=== PATIENT | male | born 1965 | race Caucasian/White ===

== ENCOUNTER 2021-05-30 15:25 | Inpatient (IN) | payer OTHER ==
[~2021-05-30] VITALS: Ht 167.6 cm; Wt 85.6 kg
[2021-05-30 16:04] LABS: HEMOGLOBIN 14.4 gm/dl (14.0-17.5); RED BLOOD COUNT 4.56 M/UL (4.20-5.50); WHITE BLOOD COUNT 8.1 K/UL (4.5-11.0)
[2021-05-30 16:27] LABS: BUN/CREATININE RATIO 14 (0-10)
[2021-05-31 04:48] LABS: RED BLOOD COUNT 3.84 M/UL (4.20-5.50)
[2021-05-31 05:17] LABS: BUN/CREATININE RATIO 12 (0-10)
[2021-05-31] MEDS ORDERED: CREON DR 24,001 EACH PO (09:25)
[2021-05-31] MEDS ORDERED: ATORVASTATIN CA40 MG PO (09:32)
[2021-05-31] MEDS ORDERED: FENOFIBRATE160 MG PO (09:32)
[2021-05-31] MEDS ORDERED: OXYCODONE HCL10 MG PO (09:32)
[2021-05-31] MEDS ORDERED: VENLAFAXINE HCL75 MG PO (09:57)
[2021-05-31] MEDS ORDERED: PROTONIX 40 MG40 M1 PO (09:58)
[2021-05-31] MEDS ORDERED: LISINOPRIL40 MG PO (09:58)
[2021-05-31] MEDS ORDERED: MULTI-VITAMIN1 EACH PO (10:01)
[2021-05-31] MEDS ORDERED: B-121000 MCG PO (10:01)
[2021-05-31] MEDS ORDERED: METOPROLOL TART50 MG PO (10:01)
[2021-05-31] MEDS ORDERED: HUMULIN N100 UNIT/1 SC (10:02)
[2021-06-01 02:59] LABS: HEMOGLOBIN 10.9 gm/dl (14.0-17.5); RED BLOOD COUNT 3.51 M/UL (4.20-5.50); WHITE BLOOD COUNT 5.4 K/UL (4.5-11.0)
[2021-06-01 03:21] LABS: BUN/CREATININE RATIO 17 (0-10)
[2021-06-02 03:46] LABS: HEMOGLOBIN 10.4 gm/dl (14.0-17.5); RED BLOOD COUNT 3.27 M/UL (4.20-5.50)
[2021-06-02 04:03] LABS: WHITE BLOOD COUNT 3.9 K/UL (4.5-11.0)
[2021-06-02 04:19] LABS: BUN/CREATININE RATIO 16 (0-10)
[2021-06-03 09:54] LABS: HEMOGLOBIN 10.9 gm/dl (14.0-17.5); RED BLOOD COUNT 3.44 M/UL (4.20-5.50); WHITE BLOOD COUNT 3.1 K/UL (4.5-11.0)
[2021-06-03 10:29] LABS: BUN/CREATININE RATIO 11 (0-10)
[2021-06-04] MEDS ORDERED: AUGMENTIN 875-1 EACH PO (09:03)
[2021-06-04] MEDS ORDERED: HYDROCODON-ACE1 EAC2 PO (09:19)
== END 2021-06-04 10:00 | disposition home or self-care (01) | DRG 853 ==
LOC: ER1 15:25 → PROG CARE 18:31 → M/S 18:31 → CDU 18:31 → PROG CARE 05-31 10:03 → M/S 06-01 17:41
PROVIDERS: Internal Medicine; Internal Medicine Gastroenterology; Student in an Organized Health Care Education/Training Program; Surgery; ADMIT Internal Medicine
PROC: 0FT44ZZ Resection of Gallbladder, Percutaneous Endoscopic Approach (ICD-10-PCS; principal; 2021-05-30)
PROC: BF141ZZ Fluoroscopy of Gallbladder, Bile Ducts and Pancreatic Ducts using Low Osmolar Contrast (ICD-10-PCS; 2021-05-30)
DX: A41.9 Sepsis, unspecified organism (principal); K85.80 Other acute pancreatitis without necrosis or infection; E87.1 Hypo-osmolality and hyponatremia; K80.00 Calculus of gallbladder with acute cholecystitis without obstruction; E87.2 Acidosis; Z20.822 Contact with and (suspected) exposure to COVID-19; I10 Essential (primary) hypertension; F10.10 Alcohol abuse, uncomplicated; E80.6 Other disorders of bilirubin metabolism; E11.9 Type 2 diabetes mellitus without complications; K59.00 Constipation, unspecified; E78.1 Pure hyperglyceridemia; E78.5 Hyperlipidemia, unspecified; Z83.3 Family history of diabetes mellitus; Z82.49 Family history of ischemic heart disease and other diseases of the circulatory system; Z84.89 Family history of other specified conditions; Z79.4 Long term (current) use of insulin
CPT/HCPCS: 36415; 71045; 76705; 80053; 80061; 80076; 81001; 82248; 82550; 82553; 82962; 83605; 83690; 83735; 83874; 84100; 84484; 85025; 85027; 87040; 87086; 96374; 96375; 99285; J0690; J0696; J1100; J1170; J1650; J1885; J2185; J2250; J2270; J2405; J2704; J2710; J3010; J7030; J7120; Q9967; U0002

== ENCOUNTER 2022-02-04 22:11 | Inpatient (IN) | payer OTHER ==
[~2022-02-04] VITALS: Ht 167.6 cm; Wt 90.0 kg
[~2022-02-04 22:11] MED LIST: ATORVASTATIN CA40 MG PO; AUGMENTIN 875-1 EACH PO; B-121000 MCG PO; CREON DR 24,001 EACH PO; FENOFIBRATE160 MG PO; HUMULIN N100 UNIT/1 SQ; HYDROCODON-ACE1 EAC2 PO; LISINOPRIL40 MG PO; METOPROLOL TART50 MG PO; MULTI-VITAMIN1 EACH PO; OXYCODONE HCL10 MG PO; PROTONIX 40 MG40 M1 PO; VENLAFAXINE HCL75 MG PO
[2022-02-04 23:33] LABS: RED BLOOD COUNT 3.83 M/UL (4.20-5.50)
[2022-02-05 01:16] LABS: BUN/CREATININE RATIO 15 (0-10)
[2022-02-05 06:18] LABS: RED BLOOD COUNT 3.96 M/UL (4.20-5.50)
[2022-02-05 06:55] LABS: HEMOGLOBIN 12.5 gm/dl (14.0-17.5); WHITE BLOOD COUNT 7.6 K/UL (4.5-11.0)
[2022-02-05] MEDS ORDERED: FENOFIBRATE160 MG PO (10:12)
[2022-02-05] MEDS ORDERED: OMEGA-31000 MG PO (10:12)
[2022-02-05] MEDS ORDERED: ASPIRIN EC325 MG PO (10:12)
[2022-02-05] MEDS ORDERED: ATORVASTATIN CA40 MG PO (10:13)
[2022-02-05] MEDS ORDERED: OXYCODONE HCL10 MG PO (10:13)
[2022-02-05 10:30] LABS: BUN/CREATININE RATIO 6 (0-10)
[2022-02-05 12:23] LABS: HEMOGLOBIN 13.8 gm/dl (14.0-17.5)
[2022-02-05 12:25] LABS: WHITE BLOOD COUNT 8.9 K/UL (4.5-11.0)
[2022-02-05 12:32] LABS: BUN/CREATININE RATIO 5 (0-10)
[2022-02-05 16:02] LABS: BUN/CREATININE RATIO 7 (0-10)
[2022-02-05 20:36] LABS: BUN/CREATININE RATIO 16 (0-10)
[2022-02-06 00:05] LABS: BUN/CREATININE RATIO 14 (0-10)
[2022-02-06 05:20] LABS: RED BLOOD COUNT 3.71 M/UL (4.20-5.50); WHITE BLOOD COUNT 8.4 K/UL (4.5-11.0)
[2022-02-06 05:32] LABS: BUN/CREATININE RATIO 8 (0-10)
[2022-02-06 11:38] LABS: BUN/CREATININE RATIO 10 (0-10)
[2022-02-06 17:17] LABS: BUN/CREATININE RATIO 11 (0-10)
[2022-02-07 01:54] LABS: BUN/CREATININE RATIO 4 (0-10)
[2022-02-07 07:54] LABS: BUN/CREATININE RATIO 5 (0-10)
[2022-02-07 16:04] LABS: BUN/CREATININE RATIO 6 (0-10)
[2022-02-07 21:11] LABS: BUN/CREATININE RATIO 5 (0-10)
--- NOTE | 2022-02-07 23:18 | NUR ---
2245 ENTERED PATIENTS ROOM TO DO AN ACCU CHECK, PT HAD PULLED OUT BOTH IV'S DOCUMENTED, STATED HE WAS DONE AND DIDNT NEED THEM ANY MORE. TREATMENT WAS EXPLAINED TO THE PATIENT AND THE NEED FOR IV SITES, HE AGREED TO RECEIVING NEW IV'S AND AGREED NOT TO PULL THEM OUT. HE ALSO PULLED OFF ALL TELEMETRY MONITORING HAS SINCE AGEED TO WEAR. HE SAID HE IS GOING HOME IN THE MORNING.
[2022-02-08 05:16] LABS: HEMOGLOBIN 12.5 gm/dl (14.0-17.5); RED BLOOD COUNT 3.4 M/UL (4.20-5.50)
[2022-02-08 05:19] LABS: WHITE BLOOD COUNT 5.8 K/UL (4.5-11.0)
[2022-02-08 06:13] LABS: BUN/CREATININE RATIO 5 (0-10)
[2022-02-08 21:47] LABS: BUN/CREATININE RATIO 8 (0-10)
[2022-02-09 05:20] LABS: HEMOGLOBIN 10.9 gm/dl (14.0-17.5); RED BLOOD COUNT 3.2 M/UL (4.20-5.50); WHITE BLOOD COUNT 5.6 K/UL (4.5-11.0)
[2022-02-09 07:32] LABS: BUN/CREATININE RATIO 10 (0-10)
[2022-02-10 06:27] LABS: BUN/CREATININE RATIO 11 (0-10)
[2022-02-10 06:37] LABS: HEMOGLOBIN 10.5 gm/dl (14.0-17.5); RED BLOOD COUNT 3.27 M/UL (4.20-5.50); WHITE BLOOD COUNT 5.8 K/UL (4.5-11.0)
[2022-02-11 06:07] LABS: HEMOGLOBIN 9.3 gm/dl (14.0-17.5); RED BLOOD COUNT 2.98 M/UL (4.20-5.50)
[2022-02-11 06:09] LABS: WHITE BLOOD COUNT 4.3 K/UL (4.5-11.0)
[2022-02-11 07:32] LABS: BUN/CREATININE RATIO 11 (0-10)
[2022-02-12 05:02] LABS: HEMOGLOBIN 10.1 gm/dl (14.0-17.5)
[2022-02-12 05:05] LABS: RED BLOOD COUNT 3.28 M/UL (4.20-5.50); WHITE BLOOD COUNT 6.6 K/UL (4.5-11.0)
[2022-02-12 05:52] LABS: BUN/CREATININE RATIO 11 (0-10)
[2022-02-12 13:47] LABS: BUN/CREATININE RATIO 11 (0-10)
[2022-02-13 05:05] LABS: HEMOGLOBIN 9.3 gm/dl (14.0-17.5); RED BLOOD COUNT 3.04 M/UL (4.20-5.50); WHITE BLOOD COUNT 8.3 K/UL (4.5-11.0)
[2022-02-13 05:27] LABS: BUN/CREATININE RATIO 8 (0-10)
[2022-02-14 05:08] LABS: HEMOGLOBIN 9.6 gm/dl (14.0-17.5); RED BLOOD COUNT 3.14 M/UL (4.20-5.50); WHITE BLOOD COUNT 9.6 K/UL (4.5-11.0)
[2022-02-14 05:47] LABS: BUN/CREATININE RATIO 11 (0-10)
[2022-02-14 17:21] LABS: HEMOGLOBIN 9.4 gm/dl (14.0-17.5)
[2022-02-15 05:17] LABS: RED BLOOD COUNT 2.98 M/UL (4.20-5.50); WHITE BLOOD COUNT 7.2 K/UL (4.5-11.0)
[2022-02-15 07:06] LABS: BUN/CREATININE RATIO 9 (0-10)
[2022-02-16 05:28] LABS: HEMOGLOBIN 8.8 gm/dl (14.0-17.5); RED BLOOD COUNT 2.77 M/UL (4.20-5.50); WHITE BLOOD COUNT 5.6 K/UL (4.5-11.0)
[2022-02-16 05:40] LABS: BUN/CREATININE RATIO 12 (0-10)
[2022-02-17 05:12] LABS: HEMOGLOBIN 9.4 gm/dl (14.0-17.5); RED BLOOD COUNT 2.93 M/UL (4.20-5.50)
[2022-02-17 05:36] LABS: BUN/CREATININE RATIO 18 (0-10)
[2022-02-18 05:58] LABS: RED BLOOD COUNT 2.93 M/UL (4.20-5.50); WHITE BLOOD COUNT 7.2 K/UL (4.5-11.0)
[2022-02-18 06:18] LABS: HEMOGLOBIN 9.4 gm/dl (14.0-17.5)
[2022-02-18 06:42] LABS: BUN/CREATININE RATIO 25 (0-10)
[2022-02-19 05:52] LABS: HEMOGLOBIN 8.8 gm/dl (14.0-17.5); RED BLOOD COUNT 2.84 M/UL (4.20-5.50); WHITE BLOOD COUNT 6.2 K/UL (4.5-11.0)
[2022-02-19 06:33] LABS: BUN/CREATININE RATIO 33 (0-10)
[2022-02-20 05:47] LABS: HEMOGLOBIN 8.8 gm/dl (14.0-17.5); RED BLOOD COUNT 2.94 M/UL (4.20-5.50); WHITE BLOOD COUNT 7.3 K/UL (4.5-11.0)
[2022-02-20 06:22] LABS: BUN/CREATININE RATIO 31 (0-10)
[2022-02-21 03:39] LABS: HEMOGLOBIN 8.8 gm/dl (14.0-17.5); WHITE BLOOD COUNT 7.1 K/UL (4.5-11.0)
[2022-02-21 04:18] LABS: BUN/CREATININE RATIO 26 (0-10)
[2022-02-22 05:25] LABS: HEMOGLOBIN 10.5 gm/dl (14.0-17.5)
[2022-02-22 05:27] LABS: RED BLOOD COUNT 3.58 M/UL (4.20-5.50); WHITE BLOOD COUNT 9.6 K/UL (4.5-11.0)
[2022-02-22 05:51] LABS: BUN/CREATININE RATIO 31 (0-10)
[2022-02-23 06:47] LABS: BUN/CREATININE RATIO 39 (0-10)
[2022-02-23 09:07] LABS: HEMOGLOBIN 9.8 gm/dl (14.0-17.5); RED BLOOD COUNT 3.32 M/UL (4.20-5.50); WHITE BLOOD COUNT 7.7 K/UL (4.5-11.0)
[2022-02-24 03:16] LABS: HEMOGLOBIN 10.5 gm/dl (14.0-17.5); RED BLOOD COUNT 3.54 M/UL (4.20-5.50); WHITE BLOOD COUNT 8.1 K/UL (4.5-11.0)
[2022-02-24 03:33] LABS: BUN/CREATININE RATIO 36 (0-10)
[2022-02-25 11:21] LABS: HEMOGLOBIN 11.1 gm/dl (14.0-17.5); RED BLOOD COUNT 3.81 M/UL (4.20-5.50)
[2022-02-25 11:29] LABS: WHITE BLOOD COUNT 10.5 K/UL (4.5-11.0)
[2022-02-25 11:54] LABS: BUN/CREATININE RATIO 29 (0-10)
[2022-02-26 03:20] LABS: HEMOGLOBIN 10.8 gm/dl (14.0-17.5); RED BLOOD COUNT 3.66 M/UL (4.20-5.50); WHITE BLOOD COUNT 9.8 K/UL (4.5-11.0)
[2022-02-26 03:51] LABS: BUN/CREATININE RATIO 21 (0-10)
[2022-02-27 09:09] LABS: HEMOGLOBIN 10.9 gm/dl (14.0-17.5); RED BLOOD COUNT 3.65 M/UL (4.20-5.50)
[2022-02-27 09:10] LABS: WHITE BLOOD COUNT 6.3 K/UL (4.5-11.0)
[2022-02-27 09:41] LABS: BUN/CREATININE RATIO 25 (0-10)
--- NOTE | 2022-02-27 13:40 | NUR ---
Pt had left the building wearing only boxers and a t shirt. he was seen leaving the hospital grounds. security was called , a lion alert called and the warehouse specialist is aware. I was directed to call 911 and he was brought back after walking to [facility] with a friend.
[2022-02-28 06:38] LABS: HEMOGLOBIN 10.6 gm/dl (14.0-17.5); RED BLOOD COUNT 3.62 M/UL (4.20-5.50); WHITE BLOOD COUNT 5.5 K/UL (4.5-11.0)
[2022-02-28 07:23] LABS: BUN/CREATININE RATIO 22 (0-10)
[2022-02-28] MEDS ORDERED: ASPIRIN EC325 MG PO (11:42)
[2022-02-28] MEDS ORDERED: ATORVASTATIN CA20 MG PO (11:42)
[2022-02-28] MEDS ORDERED: HUMULIN N100 UNIT/1 SQ (14:06)
--- NOTE | 2022-02-28 18:33 | NUR ---
received call from patient mother of unable to get the insulin because insurance needs approval/ authorization. reported this to dr. dominguez and he called the pharmacy and talked to pharmacist and able to change insulin of the patient from humulin n to lantus. dr. dominguez stated he will not call in patient oxycodone and that this pain medicine will be called in by patient's primary doctor. patient will be called for appointment by his primary doctor set up by hospital. instructed mother of the above and she agreed to pick out hand lantus at pharmacy this evening. instructed to begin lantus 40 units sq daily to begin tomorrow. informed of oxycdone will be filled by PCP. mother agreeable and verb understanding.
[2022-03-01] MEDS ORDERED: ZOFRAN ODT 4 MG4 MG SL (12:54)
[2022-03-01] MEDS ORDERED: OXYCODONE HCL10 MG PO (12:54)
== END 2022-02-28 14:08 | disposition home or self-care (01) | DRG 438 ==
LOC: ER1 22:11 → CCU 02-05 03:55 → M/S 02-05 03:55 → CDU 02-05 03:55 → PROG CARE 02-05 03:55 → M/S 02-05 06:15 → CCU 02-05 08:33 → PROG CARE 02-23 15:04 → M/S 02-25 00:07
PROVIDERS: Internal Medicine; Internal Medicine Nephrology; Internal Medicine Pulmonary Disease; Physician Assistant; ADMIT Internal Medicine
PROC: HZ2ZZZZ Detoxification Services for Substance Abuse Treatment (ICD-10-PCS; 2022-02-05)
PROC: 0BH18EZ Insertion of Endotracheal Airway into Trachea, Via Natural or Artificial Opening Endoscopic (ICD-10-PCS; 2022-02-12)
PROC: 5A1955Z Respiratory Ventilation, Greater than 96 Consecutive Hours (ICD-10-PCS; 2022-02-12)
PROC: 3E03329 Introduction of Other Anti-infective into Peripheral Vein, Percutaneous Approach (ICD-10-PCS; principal; 2022-02-14)
PROC: 0DH67UZ Insertion of Feeding Device into Stomach, Via Natural or Artificial Opening (ICD-10-PCS; 2022-02-14)
PROC: 3E0G76Z Introduction of Nutritional Substance into Upper GI, Via Natural or Artificial Opening (ICD-10-PCS; 2022-02-14)
PROC: 05HM33Z Insertion of Infusion Device into Right Internal Jugular Vein, Percutaneous Approach (ICD-10-PCS; 2022-02-14)
PROC: B543ZZA Ultrasonography of Right Jugular Veins, Guidance (ICD-10-PCS; 2022-02-14)
PROC: 3E043XZ Introduction of Vasopressor into Central Vein, Percutaneous Approach (ICD-10-PCS; 2022-02-14)
PROC: B24BZZZ Ultrasonography of Heart with Aorta (ICD-10-PCS; 2022-02-16)
DX: K85.20 Alcohol induced acute pancreatitis without necrosis or infection (principal); J96.01 Acute respiratory failure with hypoxia; J69.0 Pneumonitis due to inhalation of food and vomit; A41.9 Sepsis, unspecified organism; R65.20 Severe sepsis without septic shock; R57.8 Other shock; E87.1 Hypo-osmolality and hyponatremia; N17.9 Acute kidney failure, unspecified; E87.2 Acidosis; F10.231 Alcohol dependence with withdrawal delirium; K76.6 Portal hypertension; J98.11 Atelectasis; E51.2 Wernicke's encephalopathy; K86.3 Pseudocyst of pancreas; I12.9 Hypertensive chronic kidney disease with stage 1 through stage 4 chronic kidney disease, or unspecified chronic kidney disease; E78.1 Pure hyperglyceridemia; R16.1 Splenomegaly, not elsewhere classified; I25.10 Atherosclerotic heart disease of native coronary artery without angina pectoris; E87.6 Hypokalemia; N18.9 Chronic kidney disease, unspecified; E78.00 Pure hypercholesterolemia, unspecified; K29.80 Duodenitis without bleeding; E78.5 Hyperlipidemia, unspecified; E80.6 Other disorders of bilirubin metabolism; R94.5 Abnormal results of liver function studies; R91.8 Other nonspecific abnormal finding of lung field; E11.65 Type 2 diabetes mellitus with hyperglycemia; E83.39 Other disorders of phosphorus metabolism; E11.22 Type 2 diabetes mellitus with diabetic chronic kidney disease; Z96.659 Presence of unspecified artificial knee joint; K70.30 Alcoholic cirrhosis of liver without ascites; Z90.49 Acquired absence of other specified parts of digestive tract; Z98.890 Other specified postprocedural states; Z82.49 Family history of ischemic heart disease and other diseases of the circulatory system; Z79.899 Other long term (current) drug therapy; Z91.14 Patient's other noncompliance with medication regimen
CPT/HCPCS: ECHO; 31500; 36415; 36600; 70450; 71045; 71250; 73060; 73070; 74018; 76705; 80048; 80053; 80061; 81001; 82009; 82140; 82150; 82248; 82330; 82436; 82533; 82550; 82553; 82570; 82800; 82803; 82962; 82977; 83036; 83605; 83615; 83690; 83735; 83880; 83935; 84100; 84132; 84133; 84156; 84300; 84443; 84478; 84484; 85014; 85018; 85025; 85027; 85384; 85610; 85730; 86140; 87040; 87070; 87081; 87086; 87205; 92526; 92610; 93005; 93306; 94002; 94003; 94760; 97116; 97116-GP-CQ; 97161; 97167; 97530; 97530-GP-CQ; 97535; 99285; A6212; C9113; G0480; J0330; J0610; J1170; J1205; J1644; J1650; J1885; J1940; J2060; J2185; J2250; J2270; J2405; J2550; J2704; J2765; J3411; J3475; J3480; J3486; J7030; J7050; J7070; P9047; Q9967

== ENCOUNTER 2022-03-01 09:29 | Emergency (ER) | payer OTHER ==
[~2022-03-01 09:29] MED LIST changes: +ASPIRIN EC325 MG PO; +ATORVASTATIN CA20 MG PO; +OMEGA-31000 MG PO
[2022-03-01 10:58] LABS: HEMOGLOBIN 10.8 gm/dl (14.0-17.5); RED BLOOD COUNT 3.67 M/UL (4.20-5.50)
[2022-03-01 10:59] LABS: WHITE BLOOD COUNT 8.8 K/UL (4.5-11.0)
[2022-03-01 11:21] LABS: BUN/CREATININE RATIO 22 (0-10)
[2022-03-01] MEDS ORDERED: OXYCODONE HCL10 MG PO (12:54)
[2022-03-01] MEDS ORDERED: ZOFRAN ODT 4 MG4 MG SL (12:54)
== END 2022-03-01 13:00 | disposition home or self-care (01) ==
LOC: ER1 09:29
PROVIDERS: Emergency Medicine
DX: K86.1 Other chronic pancreatitis (principal); I11.9 Hypertensive heart disease without heart failure; E11.9 Type 2 diabetes mellitus without complications; D64.9 Anemia, unspecified
CPT/HCPCS: 80053; 83690; 85025; 99284; G0480

== ENCOUNTER 2022-03-06 16:55 | Inpatient (IN) | payer OTHER ==
[~2022-03-06] VITALS: Ht 167.6 cm; Wt 81.6 kg
[~2022-03-06 16:55] MED LIST changes: +ZOFRAN ODT 4 MG4 MG SL
[2022-03-06 17:34] LABS: HEMOGLOBIN 11.8 gm/dl (14.0-17.5); RED BLOOD COUNT 3.92 M/UL (4.20-5.50); WHITE BLOOD COUNT 9.3 K/UL (4.5-11.0)
[2022-03-06 18:18] LABS: BUN/CREATININE RATIO 20 (0-10)
[2022-03-07 05:38] LABS: HEMOGLOBIN 10.5 gm/dl (14.0-17.5); RED BLOOD COUNT 3.56 M/UL (4.20-5.50); WHITE BLOOD COUNT 9.1 K/UL (4.5-11.0)
[2022-03-07 06:11] LABS: BUN/CREATININE RATIO 16 (0-10)
[2022-03-07] MEDS ORDERED: ASPIRIN EC325 MG PO (11:06)
[2022-03-07] MEDS ORDERED: ATORVASTATIN CA80 MG PO (11:06)
[2022-03-07] MEDS ORDERED: LANTUS100 UNIT/1 SQ (11:07)
[2022-03-08 04:18] LABS: RED BLOOD COUNT 3.02 M/UL (4.20-5.50); WHITE BLOOD COUNT 4.3 K/UL (4.5-11.0)
[2022-03-08 04:54] LABS: BUN/CREATININE RATIO 17 (0-10)
[2022-03-08 07:11] LABS: CHOLESTEROL, TOTAL 170 mg/dL (100-199); HDL CHOLESTEROL 27 mg/dL (>39); LDL CHOLESTEROL CALC 89 mg/dL (0-99); LDL/HDL RATIO 3.3 ratio (0.0-3.6); T. CHOL/HDL RATIO 6.3 ratio (0.0-5.0); TRIGLYCERIDES 326 mg/dL (0-149)
[2022-03-08 08:14] LABS: LDH 430 IU/L (121-224)
--- NOTE | 2022-03-08 15:06 | NUR ---
PATIENT BEING TRANFERED TO [facility] ER. THAT FACILITY ASKED THAT PATIENT BE FITTED WITH SOFT CERVICAL COLLAR FOR TRANSPORT. THAT COLLAR IS IN PLACE. FAMILY HAD BEEN NOTIFIED OF RECIEVING FACILITY AND RECIEVING PROVIDERS. TRANSPORTATION BY AMBULANCE ARRANGED. FAMILY COMING TO SEE PATIENT AND HAS PERMISSION FROM HOUSE TO VISIT PATIENT BEFORE PATIENT LEAVES FOR CHARDON. CHUNG.
--- NOTE | 2022-03-08 15:30 | NUR ---
PATIENT UNHAPPY WITH PAIN CONTROL REGIMINE. DR PEDROZA CALLED AND 1 PERCOCET Q6 ORDERED. PATIENTS PREVIOUS MORPINE ORDER (2MG Q3) DC'D IN AM BY PROVIDER. PATIENT CONTACTED CONTRERAS MEDINA ABOUT HIS SITUATION. CONTRERAS INFORMED THE NURSE THAT PATIENT WOULD HAVE VISIT FROM DR PEDROZA OR A NEW PROVIDER IN ORDER TO TRY AND ADDRESS PATIENT CONCERNS. WILL CONTINUE TO MONITOR.
--- NOTE | 2022-03-08 17:58 | NUR ---
DR PEDROZA CAME BY TO SEE THE PATIENT DISCUSSED HIS PAIN CONTROL. DR WATCHED PATIENT THROUGH THE WINDOW. PATIENT SITTING QUIETLY WATCHING TV. DR ASSESSED PATIENTS PAIN LEVEL AND DISCUSSED HIS TRANSFER WITH HIM. PROVIDER SAID HE WOULD GIVE THE PATIENT MORE/BETTER PAIN CONTROL IF HE ACTUALLY THOUGHT THE PATIENT WAS IN THE AMOUNT OF PAIN HE REPORTED. WILL CONTINUE TO MONITOR.
--- NOTE | 2022-03-08 19:13 | NUR ---
APPROX 184 PT HAD BAGS PACKED AND CAUGHT RNS IN HALLWAY DURING SHIFT REPORT AND STATES HE IS LEAVING. PT WAS TOLD TO WAIT JUST COUPLE MINUTES AND I WOULD GET HIS PAPERWORK. AT THIS TIME PT STANDING AT NURSES STATION. WHEN CAME OUT OF LAST PT ROOM AND PT HAD UNHOOKED IV AND WAS GONE. SERCUITY WAS CALLED AND OTHER RN LEFT TO LOOK FOR PATIENT. 1900 PT WAS BROUGHT BACK TO FLOOR AND IV WAS TAKEN OUT, AMA PAPERS WERE SIGNED, PT HAD NO SIGNS OF DISTRESS. STATED HE FORGOT HE WAS SUPOSE TO WAIT AND SIGN PAPERS. PROCESS ENGINEER WAS NOTIFIED, 1909 DR. PEDROZA WAS NOTIFIED.
== END 2022-03-08 19:01 | disposition left against medical advice (07) | DRG 381 ==
LOC: ER1 16:55 → CDU 21:17 → MED SURG 4 03-07 15:54
PROVIDERS: Internal Medicine; Physician Assistant Medical; ADMIT Internal Medicine
DX: K31.1 Adult hypertrophic pyloric stenosis (principal); Z20.822 Contact with and (suspected) exposure to COVID-19; F11.20 Opioid dependence, uncomplicated; K86.0 Alcohol-induced chronic pancreatitis; F17.210 Nicotine dependence, cigarettes, uncomplicated; F10.10 Alcohol abuse, uncomplicated; I10 Essential (primary) hypertension; K21.9 Gastro-esophageal reflux disease without esophagitis; D64.9 Anemia, unspecified; E78.5 Hyperlipidemia, unspecified; G89.29 Other chronic pain; F32.A Depression, unspecified; F41.9 Anxiety disorder, unspecified; E11.40 Type 2 diabetes mellitus with diabetic neuropathy, unspecified; Z79.4 Long term (current) use of insulin; D73.5 Infarction of spleen; Z90.49 Acquired absence of other specified parts of digestive tract; Z98.890 Other specified postprocedural states; Z82.49 Family history of ischemic heart disease and other diseases of the circulatory system
CPT/HCPCS: 80053; 80061; 81001; 82550; 82553; 82962; 83615; 83690; 84439; 84443; 84484; 85025; 86140; 93005; 96361; 96374; 96375; 96376; 99285; C9113; G0480; J1170; J1650; J2270; J2405; Q9967; U0002

== ENCOUNTER → 2022-05-30 | Outpatient (CLI) | payer OTHER ==
[~2022-05-30] MED LIST changes: +ATORVASTATIN CA80 MG PO; +LANTUS100 UNIT/1 SQ
[2022-05-30 14:25] LABS: BUN/CREATININE RATIO 25 (0-10)
== END ==
LOC: CT 12:43
PROVIDERS: Internal Medicine
DX: K85.90 Acute pancreatitis without necrosis or infection, unspecified (principal); K86.1 Other chronic pancreatitis; K31.5 Obstruction of duodenum
CPT/HCPCS: 36415; 74160; 80053; Q9967